=== PATIENT | female | born 1990 | race Caucasian/White ===

== ENCOUNTER 2020-03-29 09:36 | Emergency (ER) | payer OTHER ==
[~2020-03-29] VITALS: Wt 69.4 kg
[~2020-03-29 09:36] MED LIST: DIFLUCAN150 MG PO
[2020-03-29] MEDS ORDERED: CEPHALEXIN500 M1 PO (11:19)
[2020-03-29] MEDS ORDERED: NORCO 5-325 TA1 EACH PO (11:19)
== END 2020-03-29 12:15 | disposition home or self-care (01) ==
LOC: ED 09:36
DX: S62.631A Displaced fracture of distal phalanx of left index finger, initial encounter for closed fracture (principal); S61.211A Laceration without foreign body of left index finger without damage to nail, initial encounter; X58.XXXA Exposure to other specified factors, initial encounter; Y93.89 Activity, other specified; Y92.89 Other specified places as the place of occurrence of the external cause; Y99.8 Other external cause status